=== PATIENT | male | born 1995 | race Caucasian/White ===

== ENCOUNTER 2017-10-05 00:20 | Emergency (ER) | payer OTHER | END 2017-10-05 03:32 | disposition home or self-care (01) | LOC: FTE 00:20 | DX: J02.9 Acute pharyngitis, unspecified (principal) | CPT/HCPCS: 99283; Z7502 ==

== ENCOUNTER 2018-01-21 17:29 | Emergency (ER) | payer OTHER | END 2018-01-21 17:57 | disposition home or self-care (01) | LOC: E/R 17:57 | DX: L29.9 Pruritus, unspecified (principal); H57.8 Other specified disorders of eye and adnexa | CPT/HCPCS: 99283; Z7502 ==

== ENCOUNTER 2018-01-23 23:47 | Emergency (ER) | payer OTHER ==
[2018-01-24] MEDS: DEXAMETHASONE 10 MG/ML 1 ML INJ IM (01:05)
== END 2018-01-24 02:44 | disposition home or self-care (01) ==
LOC: FTE 01-24 02:44
DX: J32.9 Chronic sinusitis, unspecified (principal); J20.9 Acute bronchitis, unspecified
CPT/HCPCS: 71046; 96372; 99284-25

== ENCOUNTER 2018-04-06 15:39 | Emergency (ER) | payer OTHER ==
[2018-04-06] MEDS: HYDROCODONE/APAP (5/325) TAB PO (17:58)
[2018-04-06] MEDS: KETOROLAC 30 MG INJ IM (17:58)
== END 2018-04-06 19:43 | disposition home or self-care (01) ==
LOC: FTE 15:39
DX: S00.83XA Contusion of other part of head, initial encounter (principal); S06.0X0A Concussion without loss of consciousness, initial encounter; R06.02 Shortness of breath; Y08.89XA Assault by other specified means, initial encounter
CPT/HCPCS: 70140; 70450; 71046; 96372; 99285-25

== ENCOUNTER 2018-10-26 23:35 | Emergency (ER) | payer OTHER ==
[2018-10-27] MEDS: DIPHENHYDRAMINE 50 MG CAP PO (01:52)
== END 2018-10-27 02:13 | disposition home or self-care (01) ==
LOC: FTE 23:35
DX: J32.9 Chronic sinusitis, unspecified (principal)
CPT/HCPCS: 99283; Z7502